=== PATIENT | female | born 1955 | race Caucasian/White ===

== ENCOUNTER 2021-11-20 18:00 | Outpatient (REF) | payer BC, SELFPAY ==
[2021-11-20 19:29] LABS: SARS PCR* Negative SARS-CoV-2 (Negative)
== END 2021-11-20 18:01 | disposition home or self-care (01) ==
LOC: LAB 18:00
PROVIDERS: Visit Provider Family Medicine
DX: Z11.52 Encounter for screening for COVID-19 (principal)
CPT/HCPCS: 87635